=== PATIENT | male | born 1975 | race Caucasian/White ===

== ENCOUNTER 2018-06-12 16:41 | Emergency (ER) | payer OTHER, SELFPAY ==
[2018-06-12 16:45] VITALS: BP 146/88; PULSE 80; RESP 16; TEMP 36.6; O2SAT 97
[2018-06-12] MEDS: diphenhydrAMINE 25 MG CAP 50 MG PO (16:57)
[2018-06-12] MEDS: predniSONE 20 MG TAB 60 MG PO (17:01)
--- NOTE | 2018-06-12 17:04 | ED.GENADUL_ITS ---
Disposition Clinical Impression: Local reaction to bee sting Disposition: HOME Condition: Stable Instructions: General Allergic Reaction (ED), Insect Bite or Sting (ED) Additional Instructions: Return immediately if you have any swelling to your lips tongue throat or mouth , Difficulty breathing, or severe worsening of symptoms. Otherwise take prescribed steroids as directed and start these tomorrow morning. You may utilize [id number] Benadryl as needed for any itching or further redness. Just take as directed on packaging. Prescriptions: Prednisone 40 mg PO DAILY #8 tablet Referrals: NONE,NONE [Primary Care Provider] - (Care management will assist in getting you a primary care provider follow-up in the next 2 weeks for establishment of primary care services.) Medical Decision Making - Medical Decision Making Patient presenting to the emergency department status post insect sting that occurred 9 hours ago. Patient has stable vital signs, normal lung sounds, no wheezing, no stridor, no oropharyngeal involvement and is otherwise stable. Patient does have localized reaction to the posterior aspect of the left humerus otherwise patient's appearance seems to be localized reaction only. Patient does state slight scratchy throat and nausea I do not feel that this is anaphylaxis given initial incident occurred 9 hours ago, patient is otherwise stable with appropriate blood pressure, no physical exam findings to suggest anaphylaxis I do feel that this may be somewhat anxiety due to patient' s family history. Patient also states multiple other times that he has been stung without incident. Patient does continue to be fixated on the monitor and appears slightly anxious. Plan to give patient Benadryl, ranitidine, and steroids and observe patient. Patient was observed in the emergency department for greater than 1 hour post medication and had no new or worsening symptoms and did state some improvement of the scratchy throat . Again I doubt this is anaphylactic as a reaction. Patient significant other did present to the emergency department and upon speaking with her she was severely anxious and worried about anaphylactic reaction due to family history of bee sting allergy. I do feel that this was a contributing factor to patient's initial presentation and that patient did not present to the emergency department immediately but only after getting done with work and spouse looking at bee stings. Patient was prescribed 4 days of further prednisone burst and informed to take Benadryl as needed. After discussion of diagnosis and plan of care with patient patient agreed and stated no further needs, questions, or concerns at this time. History of Present Illness - General Chief complaint: Allergic Stated complaint: BEE STING Time Seen by Provider: 06/12/18 16:53 Source: patient, RN notes reviewed Mode of arrival: ambulatory Limitations: no limitations - History of Present Illness Initial comments: Patient reports this morning he was at work and was stung by what he assumes was a wasp on the back of the left arm and his back. He went throughout the course the day with only mild irritation but then on his way home he began to become concerned due to having some mild nausea. He states that he is concerned due to his father having bee sting allergy but states that he has been stung multiple times with only mild localized reaction. Patient denies any swelling of his throat lips tongue or face, denies wheezing, denies syncope. Onset/Timin -: hour(s) Location: left, upper extremity Radiation: back Severity scale (1-10): 4 Quality: aching Consistency: constant Improves with: none Worsens with: none Associated Symptoms: denies other symptoms Treatments Prior to Arrival: none - Related Data Prednisone 40 mg PO DAILY #8 tablet 06/12/18 Allergies Allergy/AdvReac Type Severity Reaction Status Date / Time No Known Allergies Allergy Unverified 08/17/17 20:09 Review of Systems Constitutional: no symptoms reported. denies: diaphoresis ENT: as per HPI Respiratory: denies: shortness of breath, stridor, wheezing Cardiovascular: denies: chest pain, syncope Gastrointestinal: nausea Skin: as per HPI, rash Past Medical History - Past Medical History Medical history: no medical history Surgical history: non-contributory, other (orthopedic procedures) - Social History Smoking status: current everyday smoker Alcohol use: none Drug use: none Living Situation: lives with family General Exam - General Limitations: no limitations General appearance: alert, in no apparent distress - Head Head exam: Present: atraumatic, normocephalic - Eye Eye exam: Present: normal apperance - ENT ENT exam: Present: normal orophraynx, mucous membranes moist - Respiratory Respiratory exam: Present: normal lung sounds bilaterally. Absent: respiratory distress, wheezes, rales, rhonchi, stridor, decreased breath sounds - Cardiovascular Cardiovascular Exam: Present: regular rate, normal rhythm, normal heart sounds. Absent: tachycardia, systolic murmur, diastolic murmur, rubs, gallop, clicks - Extremities Exam Extremities exam: Present: full ROM. Absent: joint swelling - Neurological Exam Neurological exam: Present: alert, oriented X3, normal gait. Absent: altered - Psychiatric Psychiatric exam: Present: anxious - Skin Skin exam: Present: warm, dry, erythema (Patient has erythema noted to the posterior aspect of his left humerus with single punctate consistent with insect sting, patient does have a second small punctate to the left posterior thorax with mild erythema surrounding that as well. There is no induration, no fluctuance, no purulence, skin assessment otherwise unremarkable.) Course Vital Signs - 24 hr 06/12/18 16:45 Temperature 36.6 C Pulse 80 Respiratory 16 Rate Blood Pressure 146/88 Pulse Oximetry 97
[2018-06-12 18:19] VITALS: BP 174/87; PULSE 71; RESP 16; TEMP 36.6; O2SAT 99
== END 2018-06-12 18:19 | disposition home or self-care (01) ==
LOC: ER 12-05 05:44
PROVIDERS: Emergency Provider Student in an Organized Health Care Education/Training Program
DX: T63.461A Toxic effect of venom of wasps, accidental (unintentional), initial encounter (principal); F41.1 Generalized anxiety disorder
CPT/HCPCS: 99284; 99283; J7512

== ENCOUNTER 2020-07-12 09:44 | Emergency (ER) | payer OTHER, SELFPAY ==
[2020-07-12 09:52] VITALS: BP 187/99; PULSE 79; TEMP 36.6; O2SAT 97
--- NOTE | 2020-07-12 10:02 | ED.GENADUL_ITS ---
Discharge Plan Disposition Patient Disposition: HOME Condition: Stable Discharge Details Chief Complaint: Orthopedic Clinical Impression: Left ankle sprain Primary Care Provider: None,None ED Provider: Baudilio Andrew Home Meds and New Rx's Prescriptions: No Action No Known Home Meds RF: 0 Discharge Instructions Instructions: Ankle Sprain (ED) Additional Instructions: you can take 1000mg tylenol and 600mg ibuprofen every 6 hours for pain as needed call orthopedics if still in pain in a week if you have new symptoms such as abdominal pain or difficulty breathing return to the emergency department Stand Alone Forms: Work Release Referrals: Viet Shrestha MD [ [facility] STAFF PHYSICIAN] - Medical Decision Making 44 yo male states he twisted his left ankle last night in a small hole no head trauma or loc and went to [facility] last night and had a normal xray per pt and d/c'd with diagnosis of ankle sprian. Denies any new falls but still has left lateral ankle pain that is worsening per pt and doesn't feel he can work so came here for eval. No knee pain or hip pain, no head pain neck pain chest pain or abdominal pain. Has swelling and pain over lateral malleolus on left, normal pulses, no pain over metatarsals. Does have full rom of the ankle. Suspect sprain but will xray to evaluate for fx. xray negative on my read, suspect sprain, will place in walking boot and have him f/u with ortho if not improving in a week Differential Diagnosis Differential Diagnosis: fracture, dislocation, sprain Imaging Data Radiologic Study: Attestation: I personally reviewed and interpreted this imaging study as follows: Imaging: X-Ray My impression: no acute findings HPI General Mode of arrival: ambulatory . Date/Time Provider Initiated Documentation: 07/12/20 09:52 . Limitations to Documentation: no limitations . Information obtained by: patient . History of Present Illness 44 year old M presents to the emergency department with the chief complaint of left ankle pain, described as moderate, and it has been constant. Rest improves symptom(s), Movement worsens symptoms . Related Data Home Medications Medication Instructions Recorded Confirmed Unknown [No Known Home Meds] 07/12/20 07/12/20 Allergies Allergy/AdvReac Type Severity Reaction Status Date / Time No Known Allergies Allergy Unverified 07/12/20 09:56 General Stated Complaint: Orthopedic KATT: 4 Review of Systems All systems reviewed & are unremarkable except as noted in HPI and below Constitutional Constitutional: Denies chills, Denies fever(s) and Denies weakness Cardiovascular Cardiovascular: Denies chest pain and Denies dyspnea Respiratory Respiratory: Denies cough and Denies dyspnea Gastrointestinal Gastrointestinal: Denies abdominal pain, Denies nausea and Denies vomiting Neurologic Neurologic: Denies weakness Psychiatric Psychiatric: Denies depression [facility] Social History Smoking/Tobacco Use Status: Current every day Tobacco Type: cigarettes Alcohol Intake: never Drug use: Never Substance use type: does not use Do you feel safe at home: Yes Do you feel safe in your relationship?: Yes Exam Const General: no acute distress Orientation: alert HENMT Head: normal to inspection Ears: external ears normal General nose exam: external nose normal Mouth: moist mucous membranes Eyes General: appearance normal, both eyes and all related structures Neck Neck: normal visual inspection Resp Effort & Inspection: normal respiratory effort and able to speak in complete sentences Cardio Rate: regular rate Skin General skin exam: no rashes or lesions noted Neuro General: patient alert and patient oriented x3 Extrem General: full ROM and capillary refill normal Psych Mental Status: mental status grossly normal Course Vital Signs Vital signs: Vital Signs Temperature 36.6 C 07/12/20 09:52 Pulse 79 07/12/20 09:52 Blood Pressure 187/99 H 07/12/20 09:52 Pulse Oximetry 97 07/12/20 09:52 Temperature 36.6 C 07/12/20 09:52 Temperature Source Temporal Artery Scan 07/12/20 09:52 Pulse 79 07/12/20 09:52 Respiratory Effort Non-Labored 07/12/20 09:56 Blood Pressure 187/99 H 07/12/20 09:52 Blood Pressure Position Sitting 07/12/20 09:52 Pulse Oximetry 97 07/12/20 09:52 Oxygen Delivery Method Room Air 07/12/20 09:52 Oxygen Flow Rate 0 07/12/20 09:52 Pain Level 8 07/12/20 10:01
[2020-07-12] MEDS: Ibuprofen 600 MG TAB PO (10:03)
--- NOTE | 2020-07-12 10:24 | DI.RAD_ITS ---
EXAM: XR ANKLE LT COMPLETE CLINICAL HISTORY: fell twisting ankle yesterday, pain TECHNIQUE: 2D digital imaging was performed. COMPARISON: No exams were available for comparison FINDINGS: There is overlap of the fibula and calcaneus on the oblique view. No fracture or ankle mortise widen ing is seen. There is a small heel spur at the Achilles insertion on the calcaneus. IMPRESSION: No acute abnormality.
== END 2020-07-12 10:40 | disposition home or self-care (01) ==
PROVIDERS: Emergency Provider Emergency Medicine
DX: S93.402A Sprain of unspecified ligament of left ankle, initial encounter (principal); X50.1XXA Overexertion from prolonged static or awkward postures, initial encounter
CPT/HCPCS: 99283; 73610; 99282; L4361

== ENCOUNTER 2021-08-06 12:29 | Emergency (ER) | payer OTHER, SELFPAY ==
[2021-08-06 12:56] VITALS: BP 133/83; PULSE 70; RESP 18; TEMP 36.4; O2SAT 97
--- NOTE | 2021-08-06 13:57 | ED.GENADUL_ITS ---
Discharge Plan Disposition Patient Disposition: HOME Condition: Good Discharge Details Clinical Impression: Scabies Primary Care Provider: None,None ED Provider: Kayli Feliz Home Meds and New Rx's Prescriptions: New permethrin 5 % cream 1 applic topical Q14D Qty: 60 RF: 0 prednisone 20 mg tablet 40 mg PO DAILY Qty: 10 RF: 0 cephalexin 500 mg tablet 500 mg PO Q6H 7 Days Qty: 28 RF: 0 Discharge Instructions Instructions: Scabies (ED) Additional Instructions: Wash all your clothes and bedding with warm soapy water Apply the permethrin, head to toe avoiding your eyes, nose, mouth you may repeat this in 14 days should he have persistent symptoms Take Benadryl 25 to 50 mg every 4-6 hours for itching Prednisone for itch Please return with spreading redness, fever, worsening pain I also prescribed Keflex as I am concerned he had infection secondary to itching, yogurt daily while you take this medication Medical Decision Making Placed on permethrin with refill Take Keflex secondary to concern for cellulitis, prednisone for symptom control and Benadryl Given the threshold for return with fever, chills, or with any new or worsening complaints Appropriate hygiene precautions and cleansing precautions discussed with patient for home Care management follow-up as patient does not have primary care physician Discharged home in stable condition Medical Records Medical records reviewed: Yes I reviewed the patient's medical records. HPI General Mode of arrival: ambulatory . Date/Time Provider Initiated Documentation: 08/06/21 13:56 . Limitations to Documentation: no limitations . Information obtained by: patient . HPI Narrative: This 45-year-old male presents with report of rash for the past 2 weeks. Denies known exposure to co ntact with similar rash. States the rash is itchy. Predominantly on upper extremities and thorax. Denies spread of rash. Has not attempted any medications [id number]. Denies prior history of similar symptoms in the past. Otherwise reportedly healthy. Related Data Home Medications Medication Instructions Recorded Confirmed cephalexin 500 mg PO Q6H 7 Days #28 tab 08/06/21 permethrin 1 applic TOPICAL Q14D #60 g 08/06/21 prednisone 40 mg PO DAILY #10 tab 08/06/21 Previous Rx's Medication Instructions Recorded cephalexin 500 mg PO Q6H 7 Days #28 tab 08/06/21 permethrin 1 applic TOPICAL Q14D #60 g 08/06/21 prednisone 40 mg PO DAILY #10 tab 08/06/21 Allergies Allergy/AdvReac Type Severity Reaction Status Date / Time No Known Allergies Allergy Unverified 08/06/21 13:00 General Stated Complaint: RashLesion KATT: 4 Review of Systems All systems reviewed & are unremarkable except as noted in HPI and below PFSH Social History Smoking/Tobacco Use Status: Current every day Tobacco Type: cigarettes Smoking risk assessment performed?: Yes Alcohol Intake: never Drug use: Never Substance use type: does not use Do you feel safe at home: Yes Do you feel safe in your relationship?: Yes Exam Const Orientation: alert and oriented x3 Neuro General: patient alert Extrem Elbow/forearm/wrist images: 1. Papular tracking lesions with crusting, pustules on several of the lesions on wrist, webspaces of fingers 2. 3. 4. Course Vital Signs Vital signs: Vital Signs Temperature 36.4 C L 08/06/21 12:56 Pulse 70 08/06/21 12:56 Respiratory Rate 18 08/06/21 12:56 Blood Pressure 133/83 08/06/21 12:56 Pulse Oximetry 97 08/06/21 12:56 Temperature 36.4 C L 08/06/21 12:56 Temperature Source Tympanic 08/06/21 12:56 Pulse 70 08/06/21 12:56 Respiratory Rate 18 08/06/21 12:56 Respiratory Effort 08/06/21 13:00 Blood Pressure 133/83 08/06/21 12:56 Blood Pressure Position Sitting 08/06/21 12:56 Pulse Oximetry 97 08/06/21 12:56 Oxygen Delivery Method Room Air 08/06/21 12:56 Oxygen Flow Rate 0 08/06/21 12:56
--- NOTE | 2021-08-06 14:00 | NUR.NOTE ---
Nursing Note: Referral given to Care Management to obtain a PCP for routine follow up. Lucinda Hernandez
--- NOTE | 2021-08-07 09:04 | CMPROGNOTE_ITS ---
- If Service Date Differs Date of service: 08/07/21 Time of Service: 09:04 Care Management Progress Note Arsen is seen in the ED for scabies. At the request of ED provider, CM coordinates a referral to Yvrose Merrill MD, of [facility], on-call provider, to assist Arsen in obtaining a follow up appointment and in establishing care with a PCP.
== END 2021-08-06 14:32 | disposition home or self-care (01) ==
PROVIDERS: Emergency Provider Physician Assistant
DX: B86 Scabies (principal)
CPT/HCPCS: 99283

== ENCOUNTER 2025-09-15 13:40 | Emergency (ER) | payer SELFPAY ==
[2025-09-15 13:43] VITALS: BP 132/82; PULSE 79; RESP 20; TEMP 36.9; O2SAT 94
[2025-09-15 13:46] VITALS: BP 132/82; PULSE 79; RESP 20; TEMP 36.9; O2SAT 94
--- NOTE | 2025-09-15 15:00 | DI.CT_ITS ---
Exam(s) CT NECK W EXAM: CT NECK W INDICATION: dental infection, trismus, concern for abscess. COMPARISON: No exams were available for comparison TECHNIQUE: FINDINGS: VISUALIZED PARANASAL SINUSES: There is prominent mucosal thickening in the left maxillary sinus and a small fluid level therein. Right maxillary sinus is clear. Sphenoid and frontal sinuses are clear as are the ethmoidal air cells. There is some effusion evident in the right mastoid air cells. Left mastoid air cells are clear. NASOPHARYNX: Unremarkable ORODENTAL: Poor dentition. Multilevel periapical lucencies on both sides of the maxilla with dehiscence of the cortex. There is surrounding abnormal soft tissue inflammatory density anteriorly and over the left side of the face, also with left-sided platysmal thickening and subcutaneous streaking-cellulitis pattern. There is also significant periapical lucency and cortex loss around the 3rd from center left tooth on the left side of the mandible. There is significant soft tissue inflammatory change around this region also. There is no gas in the soft tissues. OROPHARYNX: There is a centrally hypodense left tonsillar abscess measuring 7 by 6 by 5 mm. Open (series 3/image 67) smaller hypodensities are noted in the right tonsil. There is no retropharyngeal abscess. HYPOPHARYNX: Unremarkable. Valleculae and epiglottis and aryepiglottic folds appear normal. VOCAL CORDS: Unremarkable. No masses evident. Subglottic airway appears unremarkable. THYROID GLAND: Unremarkable. Normal size and no significant nodules. SALIVARY GLANDS: Parotid glands appear unremarkable. No masses nor calcifications evident within the submandibular glands. LYMPH NODES: There are enlarged reactive lymph nodes on the left side both sub platysmal and along the upper jugular chain. Largest of these measures 1.5 by 1.0 cm. There is no supraclavicular adenopathy. OTHER: VISUALIZED LUNG APICES: No significant findings. IMPRESSION: 1. There is prominent inflammatory type induration-streaking on the central sub nasal and over the left side of the face anterior to the left maxillary sinus and maxillary bone and around a periapical defect in the anterior left side of the mandible. There is abundant induration and subcutaneous edema and skin thickening-probable cellulitis pattern as well as reactive lymph nodes on the left side of the face. 2. There is also an abscess in the left pharyngeal tonsil with measurements as above. No evidence of retropharyngeal abscess. 3. Circumferential mucosal thickening and fluid level in the left maxillary sinus consistent with acute sinusitis. There is also some fluid in right mastoid air cells incidentally noted. Report called by myself to ER provider 09/15/2025 at 6:08 p.m. RADIATION DOSE DELIVERED: 474.31mGy.cm Total DLP DATA REPOSITORY: All CT scans at this facility are submitted to the National Radiology Data Registry (NRDR) Dose Index Registry (DIR) with the [employer] (A[employer]). RADIATION OPTIMIZATION: All CT scans at this facility use at least one of these dose optimization techniques: automated exposure control; mA and/or kV adjustment per patient size (includes targeted exams where dose is matched to clinical indication); or iterative reconstruction.
--- NOTE | 2025-09-15 15:10 | W.ED.GENAD ---
Discharge Plan Discharge Details Chief Complaint: DentalOral Primary Care Provider: None,None ED Provider: Opal Marie Home Meds and New Rx's Prescriptions: No Action permethrin 5 % cream 1 applic topical Q14D Qty: 60 0RF Rx Instructions: apply second treatment 14 days after first treatment if live lice remain prednisone 20 mg tablet 40 mg PO DAILY Qty: 10 0RF HPI General Date/Time Provider Initiated Documentation: 09/15/25 14:41. Limitations to Documentation: no limitations. Information obtained by: patient, family and RN notes reviewed. History of Present Illness 49 year old M presents to the emergency department with the chief complaint of dental pain, left sided facial swelling, described as severe, and is localized to the face, mouth and neck. Patient started experiencing this day(s) (3) and it has been constant. No relieving factors improve symptom(s), Eating worsens symptoms and Movement worsens symptoms . Patient notes fever/chills, loss of appetite and malaise; denies chest pain, cough, headaches, nausea/vomiting and shortness of breath. Patient did receive the following treatments prior to arrival, NSAID Related Data Home Medications Medication Instructions Recorded Confirmed permethrin 5 % topical cream 1 applic topical Q14D 2 doses #60 08/06/21 09/15/25 grams prednisone 20 mg tablet 40 mg (2 x 20 mg) PO DAILY #10 tabs 08/06/21 09/15/25 Previous Rx's Medication Instructions Recorded permethrin 5 % topical cream 1 applic topical Q14D 2 doses #60 08/06/21 grams prednisone 20 mg tablet 40 mg (2 x 20 mg) PO DAILY #10 tabs 08/06/21 Allergies Allergy/AdvReac Type Severity Reaction Status Date / Time No Known Allergies Allergy Unverified 09/15/25 13:47 General Stated Complaint: DentalOral KATT: 3 Review of Systems Constitutional Constitutional: Reports as per HPI, Denies fever(s) and Denies headache(s) Eyes Eyes: Denies change in vision and Denies irritation ENT Ears, Nose, Mouth, and Throat: Reports as per HPI, Reports dental pain, Denies dysphagia, Denies dizziness, Denies dry mouth, Denies ear discharge, Denies otalgia, Reports facial pain, Denies headache(s), Denies hoarseness, Denies lip swelling and Denies nasal congestion Cardiovascular Cardiovascular: Reports as per HPI and Denies chest pain Respiratory Respiratory: Reports as per HPI and Denies cough Gastrointestinal Gastrointestinal: Reports as per HPI, Denies dysphagia, Denies nausea and Denies vomiting Integumentary/Breasts Skin/Breast: Reports as per HPI, Denies erythema, Denies rash and Denies skin pain Neurologic Neurologic: Reports as per HPI, Denies dizziness and Denies headache(s) Allergic/Immunologic Allergic/Immunologic: Denies lip swelling Exam Const General: cooperative, healthy appearing, comfortable, no acute distress, well developed and well groomed Nutritional Appearance: average body habitus and well nourished Orientation: alert and awake [facility] Head: normal to inspection, normocephalic and atraumatic Ears: hearing grossly normal bilaterally General nose exam: external nose normal and nares normal Face and sinus: sinuses nontender, face asymmetric (swelling on left side of face), no crepitus, no ecchymosis, erythema, no fluctuance, no maxillary instability, tenderness (over upper dentition) and dry mucous membranes Mouth: mucous membranes dry, no audible dysphonia, no drooling, normal lip, no muffled voice and restricted motion Teeth and gingiva: poor dentition (pain buccal side 9-11 teeth) Throat: posterior oropharynx normal, tonsils normal and uvula midline Eyes General: appearance normal, both eyes and all related structures Neck Neck: full ROM, no lymphadenopathy, meningismus present, trachea midline, supple, anterior neck swelling (left side) and lymphadenopathy Resp Effort & Inspection: normal respiratory effort, able to speak in complete sentences and no respiratory distress Cardio Rate: regular rate Rhythm: regular rhythm Skin General skin exam: no rashes or lesions noted Trauma: no lacerations or abrasions Neuro General: patient alert and patient awake Cognition: normal cognition Speech: speech normal Gait: normal gait Course Vital Signs Vital signs: Vital Signs Temperature 36.9 C 09/15/25 13:43 Pulse 79 09/15/25 13:43 Respiratory Rate 20 09/15/25 13:43 Blood Pressure 132/82 09/15/25 13:43 Pulse Oximetry 94 09/15/25 13:43 Temperature 36.9 C 09/15/25 13:46 Pulse 79 09/15/25 13:46 Respiratory Rate 20 09/15/25 13:46 Blood Pressure 132/82 09/15/25 13:46 Blood Pressure Position Sitting 09/15/25 13:46 Pulse Oximetry 94 09/15/25 13:46 Oxygen Delivery Method Room Air 09/15/25 13:46 Oxygen Flow Rate 0 09/15/25 13:46 Medical Decision Making Patient is a pleasant 49-year-old gentleman presented with chief complaint of dental pain and facial swelling began about 3 days ago. He states it began on the left upper aspect of the dentition and they had swelling initially under the eye that has now spread down to the left aspect of the neck. States that he had intermittent fevers. She has been using NSAIDs. He denies any headache or visual changes. He has not had any nausea or vomiting. Patient has not seen a dentist in several years. Does not perform routine dental care. Describes having some green discharge from the left upper tooth primarily anteriorly near the 9 through 11 teeth. Only has had multiple dental processes historically, reports that he has never had swelling like this. Reports that the abdomen feeling slightly better earlier today but then the swelling began to increase it again. On exam, patient appears nontoxic. He is hemodynamically stable, afebrile. Facial exam shows left-sided facial swelling with some mild erythema. No palpable fluctuance no focal area of consolidation. She was explained from just below the orbit down the left side of his cheek with some involvement of the left side of the anterior neck. Does have some lymphadenopathy. Concerned the patient does have difficulty opening his mouth, minimal movement and reports that he does have increased pain when trying to open his mouth. Has had diminished appetite and difficulty eating. Patient has poor dentition with multiple nubbins, particularly anteriorly. He has pain on the buccal side of the anterior left mouth, no pain on the lingual side. No discharge or palpable area of fluctuance to suggest drainable abscess. Concern potential deep space infection, peritonsillar abscess. Will obtain CT imaging. Will also give IV antibiotics. Will give IV acetaminophen. Patient declines any narcotic pain management medications at this time as he will need to drive some self home. Will also give IV fluids. Discussed this plan with the patient who is in agreement. No indication at this time that the patient has sepsis, no evidence of airway compromise, handling secretions well. We did discuss that he will need definitive care with a dentist. At the end of my shift, care transition oncoming clinician with labs and imaging pending. Dictation completed using [employer] dictation software. Please excuse any errors or bar pointer anomalies that may remain. PFSH All Active Problems (Updated 08/06/21 @ 14:01 by FLASH Jeronimo) Scabies (Acute) Social History Smoking/Tobacco Use Status: Current every day Tobacco Type: cigarettes Smoking risk assessment performed?: Yes Alcohol Intake: never Drug use: Never Substance use type: does not use Do you feel safe at home: Yes Do you feel safe in your relationship?: Yes
[2025-09-15 16:20] LABS: HCT 43.9 % (40.0-50.0); HGB 14.8 g/dL (13.5-17.5); MCH 29.7 pg (27.0-33.0); MCHC 33.7 % (32.0-36.0); MCV 88 fL (80-95); MPV 10.9 fL (8.0-11.0); Platelet Count 212 10^3/uL (130-400); RBC 4.98 10^6/uL (4.36-5.78); RDW 13.4 % (11.8-14.1); RDW-SD 43.8 fL; WBC 21.54 10^3/uL (4.4-10.8)
[2025-09-15] MEDS: Normal Saline 1,000 ML 1000 ML IV (16:26)
[2025-09-15] MEDS: AMPICILLIN/SULBACTAM 3 GM in Normal Saline 100 ML IVPB (16:26)
[2025-09-15] MEDS: Benzocaine 20% Gel 30 GM JAR MM (16:26)
[2025-09-15 16:37] LABS: ALT 27 U/L (10-49); AST 18 U/L (<34); Abs Immature Grans 0.00 10^3/uL (0.0-0.06); Albumin 4.9 g/dL (3.4-5.0); Alkaline Phosphatase 54 U/L (46-116); Anion Gap 8.3 mmol/L (3-11); BUN 11 mg/dL (9-23); Bilirubin, Total 1.30 mg/dL (0.2-1.2); CO2 26.7 mmol/L (20.0-31.0); Calcium 9.6 mg/dL (8.3-10.6); Chloride 105 mmol/L (98-107); Glucose 101 mg/dL (74-106); Immature Grans % 0.0 %; Potassium 3.8 mmol/L (3.5-5.1); RBC Morphology Normal; Sodium 140 mmol/L (136-145); Total Protein 7.5 g/dL (5.7-8.2)
[2025-09-15] MEDS: ACETAMINOPHEN 1,000 MG/100 ML BAG 400 MG IVPB (16:57)
[2025-09-15] MEDS: Normal Saline Flush 10 ML SYR IVP (17:16)
[2025-09-15] MEDS: Omnipaque 350 MG/ML 100 ML BTL IJ (17:16)
[2025-09-15] MEDS: Normal Saline - Diluent 50 ML VIAL IJ (17:16)
[2025-09-15] MEDS: Amoxicillin 875/Clav. 125 TAB PO (19:11)
[2025-09-15 19:12] VITALS: BP 133/66; PULSE 64; RESP 20; O2SAT 98
== END 2025-09-15 19:14 | disposition home or self-care (01) ==
PROVIDERS: Physician Assistant; Emergency Provider Physician Assistant
DX: J36 Peritonsillar abscess (principal); K04.7 Periapical abscess without sinus
CPT/HCPCS: 70491; 80053; 96365; 96367; 99285; 85025; 99284; J0131; J0295; J3490